=== PATIENT | male | born 1945 | race Asian ===

== ENCOUNTER 2016-06-08 10:58 | Emergency (ER) | payer OTHER ==
[~2016-06-08] VITALS: Ht 177.8 cm; Wt 88.0 kg
[2016-06-08] MEDS ORDERED: METF500T PO (11:19)
[2016-06-08] MEDS ORDERED: LISI20TA11 PO (11:22)
[2016-06-08] MEDS ORDERED: BUDESONIDE3 MG/24 HR OR (11:23)
[2016-06-08] MEDS ORDERED: DIPHENATOL2.5 MG OR (11:23)
[2016-06-08] MEDS ORDERED: BENTYL10 MG PO (11:24)
[2016-06-08 11:26] LABS: PLATELET COUNT 188 K/uL (142-355)
[2016-06-08 11:35] LABS: POTASSIUM 3.4 mmol/L (3.6-5.2)
== END 2016-06-08 12:19 | disposition home or self-care (01) ==
LOC: ED 10:58
DX: E11.9 Type 2 diabetes mellitus without complications (principal); R51 Headache; T44.5X5A Adverse effect of predominantly beta-adrenoreceptor agonists, initial encounter; Y92.89 Other specified places as the place of occurrence of the external cause
CPT/HCPCS: 36415; 80053; 83036; 85027; 99282

== ENCOUNTER 2016-08-09 09:30 | Outpatient (CLI) | payer OTHER ==
[~2016-08-09 09:30] MED LIST: BENTYL10 MG PO; BUDESONIDE3 MG/24 HR OR; DIPHENATOL2.5 MG OR; LISI20TA11 PO; METF500T PO
[2016-08-09 10:04] LABS: PLATELET COUNT 207 K/uL (142-355)
[2016-08-09 10:17] LABS: POTASSIUM 3.3 mmol/L (3.6-5.2); SODIUM 139 mmol/L (136-145)
== END 2016-08-09 10:30 | disposition home or self-care (01) ==
LOC: LABW 09:30
PROVIDERS: Internal Medicine
DX: E11.9 Type 2 diabetes mellitus without complications (principal); Z12.5 Encounter for screening for malignant neoplasm of prostate
CPT/HCPCS: 36415; 80053; 80061; 81000; 82043; 82570; 83036; 84154; 84443; 85027

== ENCOUNTER 2017-01-01 09:51 | Outpatient (CLI) | payer OTHER ==
[2017-01-01 10:19] LABS: PLATELET COUNT 210 K/uL (142-355)
[2017-01-01 10:46] LABS: POTASSIUM 3.9 mmol/L (3.6-5.2)
== END 2017-01-01 10:55 | disposition home or self-care (01) ==
LOC: LABW 09:51
PROVIDERS: Internal Medicine
DX: E11.49 Type 2 diabetes mellitus with other diabetic neurological complication (principal)
CPT/HCPCS: 36415; 80053; 80061; 81000; 82607; 83036; 84439; 84443; 85027

== ENCOUNTER 2017-02-01 16:57 | Emergency (ER) | payer OTHER ==
[~2017-02-01] VITALS: Ht 180.3 cm; Wt 88.0 kg
== END 2017-02-01 18:40 | disposition home or self-care (01) ==
LOC: ED 16:57
DX: M50.322 Other cervical disc degeneration at C5-C6 level (principal)
CPT/HCPCS: 99282

== ENCOUNTER 2017-06-24 14:10 | Outpatient (CLI) | payer OTHER ==
[2017-06-24 14:26] LABS: PLATELET COUNT 219 K/uL (142-355)
[2017-06-24 15:14] LABS: POTASSIUM 4.1 mmol/L (3.6-5.2)
== END 2017-06-24 23:05 | disposition home or self-care (01) ==
LOC: LAB 14:10
PROVIDERS: Nurse Practitioner Family
DX: I10 Essential (primary) hypertension (principal); E11.9 Type 2 diabetes mellitus without complications; E78.00 Pure hypercholesterolemia, unspecified; K29.70 Gastritis, unspecified, without bleeding; R97.20 Elevated prostate specific antigen [PSA]; E03.8 Other specified hypothyroidism; N40.0 Benign prostatic hyperplasia without lower urinary tract symptoms
CPT/HCPCS: 80053; 80061; 83036; 84154; 84436; 84443; 85027

== ENCOUNTER 2018-01-20 09:01 | Outpatient (CLI) | payer OTHER ==
[2018-01-20 09:15] LABS: PLATELET COUNT 196 K/uL (142-355)
[2018-01-20 09:41] LABS: POTASSIUM 3.9 mmol/L (3.6-5.2)
== END 2018-01-20 23:46 | disposition home or self-care (01) ==
LOC: LABW 09:01
PROVIDERS: Physician Assistant
DX: Z00.00 Encounter for general adult medical examination without abnormal findings (principal); I10 Essential (primary) hypertension; N40.0 Benign prostatic hyperplasia without lower urinary tract symptoms; E11.9 Type 2 diabetes mellitus without complications; E55.9 Vitamin D deficiency, unspecified
CPT/HCPCS: 36415; 80053; 82306; 83036; 84153; 84439; 84443; 85027

== ENCOUNTER 2018-02-10 08:26 | Outpatient (CLI) | payer OTHER | END 2018-02-10 22:24 | disposition home or self-care (01) | LOC: US 08:26 | DX: Z13.6 Encounter for screening for cardiovascular disorders (principal) ==

== ENCOUNTER 2018-03-31 11:36 | Outpatient (CLI) | payer OTHER | END 2018-03-31 22:19 | disposition home or self-care (01) | LOC: RAD 11:36 | DX: I44.0 Atrioventricular block, first degree (principal) ==

== ENCOUNTER 2018-08-05 11:22 | Outpatient (CLI) | payer OTHER | END 2018-08-05 19:11 | disposition home or self-care (01) | LOC: RAD 11:22 | DX: M25.461 Effusion, right knee (principal) ==

== ENCOUNTER 2018-10-08 15:10 | Outpatient (CLI) | payer OTHER | END 2018-10-08 19:18 | disposition home or self-care (01) | LOC: RAD 15:10 | DX: M54.2 Cervicalgia (principal); M25.561 Pain in right knee; M25.562 Pain in left knee; M79.671 Pain in right foot ==

== ENCOUNTER 2018-12-19 11:39 | Emergency (ER) | payer OTHER ==
[~2018-12-19] VITALS: Ht 180.3 cm; Wt 92.5 kg
[2018-12-19 13:46] VITALS: BP 121/68; TEMP 98.4
== END 2018-12-19 14:45 | disposition home or self-care (01) ==
LOC: ED 11:39
DX: M51.36 Other intervertebral disc degeneration, lumbar region (principal)
CPT/HCPCS: 81000; 96372; 99283; J1885

== ENCOUNTER 2019-03-23 08:59 | Outpatient (CLI) | payer OTHER | END 2019-03-23 20:14 | disposition home or self-care (01) | LOC: CT 08:59 | DX: Z13.6 Encounter for screening for cardiovascular disorders (principal); Z12.2 Encounter for screening for malignant neoplasm of respiratory organs; Z84.89 Family history of other specified conditions | CPT/HCPCS: G0297-TC ==

== ENCOUNTER 2020-05-29 10:59 | Emergency (ER) | payer OTHER ==
[~2020-05-29] VITALS: Ht 180.3 cm; Wt 90.7 kg
[~2020-05-29 10:59] MED LIST changes: -BENTYL10 MG PO; +DICYCLOMINE HYD10 MG PO
[2020-05-29 11:09] VITALS: TEMP 98.5
[2020-05-29] MEDS ORDERED: SIMV20TA2 PO (11:11)
[2020-05-29] MEDS ORDERED: METFTAB PO (11:11)
[2020-05-29] MEDS ORDERED: ASPIRIN 81 LOW81 MG PO (11:12)
[2020-05-29] MEDS ORDERED: ZESTRIL40 MG PO (11:12)
[2020-05-29] MEDS ORDERED: AMLODIPINE BESYLATE PO (11:13)
[2020-05-29 12:17] VITALS: BP 138/65
== END 2020-05-29 12:17 | disposition home or self-care (01) ==
LOC: ED 10:59
DX: S39.012A Strain of muscle, fascia and tendon of lower back, initial encounter (principal)
CPT/HCPCS: 81000; 99282

== ENCOUNTER 2022-11-13 10:10 | Day surgery (SDC) | payer OTHER ==
[~2022-11-13] VITALS: Ht 180.3 cm; Wt 90.7 kg
[~2022-11-13 10:10] MED LIST changes: +AMLODIPINE BESYLATE PO; +ASPIRIN 81 LOW81 MG PO; +METFTAB PO; +SIMV20TA2 PO; +ZESTRIL40 MG PO
== END 2022-11-13 13:05 | disposition home or self-care (01) ==
LOC: OR 10:10
PROVIDERS: ATTEND Internal Medicine Gastroenterology
PROC: 0DBP8ZX Excision of Rectum, Via Natural or Artificial Opening Endoscopic, Diagnostic (ICD-10-PCS; principal; 2022-11-13)
DX: Z12.11 Encounter for screening for malignant neoplasm of colon (principal); Z86.010 Personal history of colon polyps; D12.8 Benign neoplasm of rectum; K57.30 Diverticulosis of large intestine without perforation or abscess without bleeding; K64.0 First degree hemorrhoids
CPT/HCPCS: J2704; J7120